=== PATIENT | female | born 1945 | race African-American/Black ===

== ENCOUNTER 2018-11-25 06:17 | Day surgery (SDC) | payer MEDICARE, MEDICAID ==
[2018-11-24 16:50] LABS: BASOPHILS # (AUTO) 0.1 X10'3 (0-0.2); BASOPHILS % (AUTO) 1.4 % (0-1); EOSINOPHILS # (AUTO) 0.2 X10'3 (0-0.9); EOSINOPHILS % (AUTO) 2.1 % (0-6); HEMATOCRIT 41.7 % (35.0-45.0); HEMOGLOBIN 13.7 g/dl (12.0-16.0); LYMPHOCYTES # (AUTO) 2.6 X10'3 (1.1-4.8); LYMPHOCYTES % (AUTO) 25.4 % (21-51); MEAN CORPUSCULAR HEMOGLOBIN 27.9 PG (27.0-31.0); MEAN CORPUSCULAR HGB CONC 32.8 g/dL (33.0-36.5); MEAN CORPUSCULAR VOLUME 85.1 FL (78-98); MONOCYTES # (AUTO) 0.7 X10'3 (0-0.9); MONOCYTES % (AUTO) 7.2 % (2-12); NEUTROPHILS # (AUTO) 6.6 X10'3 (1.8-7.7); NEUTROPHILS % (AUTO) 63.9 % (42-75); PLATELET COUNT 281 X10'3 (140-440); RED CELL DISTRIBUTION WIDTH 15.8 % (11.5-14.5); WHITE BLOOD COUNT 10.3 X10'3 (4.5-11.0)
[2018-11-24 16:55] LABS: ALBUMIN 2.8 G/DL (3.4-5.0); ANION GAP 8 (8-16); BLOOD UREA NITROGEN 17 MG/DL (7-18); BUN/CREATININE RATIO 12.7 (6.6-38.0); CALCIUM 9.3 MG/DL (8.5-10.1); CHLORIDE 109 MMOL/L (99-107); CREATININE 1.34 MG/DL (0.40-0.90); GLUCOSE 137 MG/DL (70-104); POTASSIUM 4.2 MMOL/L (3.5-5.1); SODIUM 144 MMOL/L (135-145); TOTAL CARBON DIOXIDE 27.4 MMOL/L (24-32); eGFR 47 ML/MIN
[2018-11-24 17:00] LABS: PARTIAL THROMBOPLASTIN TIME 25 SECONDS (22-32)
[~2018-11-25] VITALS: Ht 162.6 cm; Wt 137.1 kg
[2018-11-25] VITALS (11 sets, daily range): BP systolic 140–198; BP diastolic 69–101
[2018-11-25] MEDS ORDERED: LORazepam 0.5 MG tablet PO PRN (06:35)
[2018-11-25] MEDS ORDERED: diphenhydrAMINE 25mg capsule PO PRN (06:35)
[2018-11-25] MEDS ORDERED: UMEC62.5 PO (06:44)
[2018-11-25] MEDS ORDERED: FLO44IN IH (06:44)
[2018-11-25] MEDS ORDERED: ESOM20CA38 PO (06:44)
[2018-11-25] MEDS ORDERED: ATOR40TA PO (06:44)
[2018-11-25] MEDS ORDERED: FAMO20TA8 PO (06:44)
[2018-11-25] MEDS ORDERED: ISOS30TA6 PO (06:44)
[2018-11-25] MEDS ORDERED: LABE300T2 PO (06:44)
[2018-11-25] MEDS ORDERED: LOSA100T57 PO (06:44)
--- NOTE | 2018-11-25 06:49 | NUR ---
paged waiting called back
--- NOTE | 2018-11-25 06:50 | NUR ---
new orders given, administering meds as ordered.
[2018-11-25] MEDS ORDERED: acetylcysteine 200 MG/ml 4ml vial PO PRN ×2 (07:00→09:45)
[2018-11-25] MEDS ORDERED: sodium bicarbonate inj. 100 ML in dextrose 5%-water 1,000 ML IV ONE (07:15)
[2018-11-25] MEDS ORDERED: LIDOcaine/PRILOcaine 5gm cream TP ONE (07:30)
[2018-11-25] MEDS ORDERED: LIDOcaine 1% (10mg/ml)w/preservative injection 20ml MDV ONE (07:54)
[2018-11-25] MEDS ORDERED: iohexol 350 MG/ML 50ML vial IV ONE (07:54)
[2018-11-25] MEDS ORDERED: nitroGLYCERIN-Tridil 50MG/D5W 250 ML IV ONE (07:54)
[2018-11-25] MEDS ORDERED: fentaNYL/PF 50MCG/1 ML 2ML syringe ONE (07:54)
[2018-11-25] MEDS ORDERED: midazolam 2 mg/2 ml injection ONE (07:54)
[2018-11-25] MEDS ORDERED: verapamil 2.5 mg/ml inj IV ONE (07:54)
[2018-11-25] MEDS ORDERED: heparin 1,000unit/ml 10ml vial 10 ML ONE (07:54)
[2018-11-25] MEDS ORDERED: iohexol 350MG/ML 100ml bottle IV ONE (07:54)
[2018-11-25 09:11] LABS: ISTAT Hct MIX 37 %PCV (35-48); ISTAT O2 SATURATION MIX VENOUS 66 % (60-80); ISTAT SOURCE MIX
[2018-11-25 09:11] LABS: ISTAT HGB ART 12.6 g/dl (12.0-16.0); ISTAT Hct ART 37 %PCV (35-48); ISTAT O2 SATURATION ARTERIAL 97 % (95-98); ISTAT SOURCE ART
[2018-11-25] MEDS ORDERED: hydrALAZINE 20mg/ml inj. IV ONE (09:30)
[2018-11-25] MEDS ORDERED: NORMAL SALINE IV SCH (09:45)
[2018-11-25] MEDS ORDERED: SODIUM BICARBONATE IV SCH (09:45)
[2018-11-25] MEDS ORDERED: sodium bicarbonate inj. 75 ML in dextrose 5% water 500ml 500 ML IV SCH (09:46)
[2018-11-25] MEDS ORDERED: famotidine 20mg tablet PO SCH (20:00)
[2018-11-25] MEDS ORDERED: labetalol 100mg tablet PO SCH (20:00)
[2018-11-25] MEDS ORDERED: budesonide 0.5mg/2ml UD nebule IH SCH (20:00)
[2018-11-26] MEDS ORDERED: isosorbide mononitrate 30mg tab.SR.24H PO SCH (08:00)
[2018-11-26] MEDS ORDERED: losartan 50mg tablet PO SCH (08:00)
[2018-11-26] MEDS ORDERED: atorvastatin 20mg tablet PO SCH (08:00)
[2018-11-26] MEDS ORDERED: pantoprazole 40mg Tablet.DR PO SCH (08:00)
[2018-11-26] MEDS ORDERED: ipratropium 0.5 MG/2.5ML nebule NEB SCH (08:00)
== END 2018-11-25 16:13 | disposition home or self-care (01) ==
LOC: SSTAY O 06:17
PROVIDERS: ATTEND Internal Medicine Cardiovascular Disease
DX: R94.39 Abnormal result of other cardiovascular function study (principal); I25.118 Atherosclerotic heart disease of native coronary artery with other forms of angina pectoris; I10 Essential (primary) hypertension; E11.9 Type 2 diabetes mellitus without complications; J44.9 Chronic obstructive pulmonary disease, unspecified; Z79.899 Other long term (current) drug therapy; Z79.01 Long term (current) use of anticoagulants
CPT/HCPCS: 36415; 80048; 82803; 85014; 85025; 85610; 85730; 93005; 93460; 99152; 99153; C1894; J0360; J1644; J2001; J2250; J3010; J7060; Q0163; Q9967; A4620; A5120; J3490; J7040; J7626